=== PATIENT | female | born 1985 | race Caucasian/White ===

== ENCOUNTER 2023-02-27 19:53 | Emergency (ER) | payer BC, MEDICAID, SELFPAY ==
[2023-02-27 21:17] VITALS: BP 143/76; PULSE 73; RESP 16; TEMP 37.3; O2SAT 96; BMI 44.9
[2023-02-27 22:15] LABS: Lithium 1.31 mmol/L (0.60-1.20)
[2023-02-28 00:22] VITALS: BP 136/77; PULSE 77; RESP 18; TEMP 36.9; O2SAT 97
--- NOTE | 2023-02-28 00:23 | MHC.EDTECH ---
This tech placed patient in hospital attire,site monitor applied, Vitals taken. Call murphy within reach
--- NOTE | 2023-02-28 00:59 | MHC.EDTECH ---
Patient rang call murphy to use bathroom, patient ambulated with no assistance. Urine obtained and sent to lab.
[2023-02-28 01:13] LABS: Appearance Urine Cloudy; Color Urine Yellow; Glucose Urine UA Negative (Negative); Leukocyte Esterase Urine Moderate (2+) (Negative); Nitrite Urine Negative (Negative); PH 5.5 (5.0-9.0); UMIC TRIGGER UACC YES; Urine Blood Moderate (2+) (Negative); Urine Ketones Negative (Negative); Urine Protein Negative (Neg-Trace)
--- NOTE | 2023-02-28 01:15 | ED_ITS ---
HPI - General Adult General Chief complaint: General Medical Stated complaint: hi levels in labs Time Seen by Provider: 02/28/23 01:00 History of Present Illness HPI narrative: Patient is a 37-year-old female with a history of bipolar presented today because she had her lithium drug level drawn it was 1.4. Patient was worried. Came to the ED. there is mild nausea mild tremor that was noted. Patient denies any fever chills. No coughing or congestion no abdominal pain. Otherwise feels okay. She has been compliant with her medication. The dose of lithium has not changed. Related Data Allergies Allergy/AdvReac Type Severity Reaction Status Date / Time No Known Allergies Allergy Verified 02/27/23 21:22 Review of Systems Review of Systems: No fever no chills no chest pain or shortness breath no nausea no vomiting Yes all other systems are reviewed and are negative [facility] Past Medical History Attestation statement: The following information was validated with the patient. Social History Social History Alcohol intake: never Smoked in Last 30 Days: No Use of substances other than those prescribed or required for medical reasons: No Advance Directives: No Advance Directives Information Provided: No Patient : No Physical Exam ED Vital Signs: Vital Signs - 24 hr 02/27/23 21:17 02/28/23 00:22 02/28/23 01:27 Temperature 99.1 F 98.4 F 97.8 F Pulse Rate 73 77 70 Respiratory Rate 16 18 16 Blood Pressure 143/76 H 136/77 134/81 Pulse Oximetry 96 97 98 Oxygen Delivery Method Room Air Room Air Room Air BMI result Body Mass Index 44.9 Appearance: Alert. Oriented X3. No acute distress. Eyes: Pupils equal, round and reactive to light. ENT: Pharynx normal. Neck: Normal inspection. Neck supple. No lymph nodes noted. No crepitus CVS: Normal heart rate and rhythm. Pulses normal. Normal S1 and S2 Respiratory: No respiratory distress. Breath sounds normal. No Wheezing. No rales Abdomen: Soft and nontender. No rigidity. No distention. good BS x4 Skin: Skin warm and dry. Normal skin color. Normal skin turgor. Extremities: No lower extremity edema. Neurovascular intact to all extremities. No Lacerations. No Rash Neuro: Oriented X 3. No motor deficit. No sensory deficit. Moving all extermities. No slurred speech Medical Decision Making Medical Decision Making [facility] Narrative: Patient well-appearing. [place] level was 1.3 here. Electrolytes were normal. Normal kidney function. Patient in no distress. Will have patient follow-up on an outpatient basis. No evidence for severe overdose. No evidence for kidney failure. Patient is in stable condition. Differential Diagnosis Differential Diagnoses: The differential diagnosis associated with the presentation includes [place] overdose Lab Data [facility] Lab Attestation statement: I reviewed the patient's lab results. 02/28/23 01:24 02/28/23 01:24 Labs: Lab Results 02/27/23 02/28/23 02/28/23 Range/Units 21:41 01:04 01:04 WBC (4.8-10.8) X10*3/uL RBC (4.20-5.50) X10*6/uL Hgb (12.0-16.0) g/dl Hct (37.0-47.0) % MCV (80.0-98.0) fL MCH (27.0-33.0) pg MCHC (31.0-35.0) g/dl RDW (11.0-16.0) % Plt Count (160-400) X10*3/uL MPV (9.4-12.3) fL Immature Gran % (Auto) (0.0-0.4) % Neut % (Auto) (45-73) % Lymph % (Auto) (20-40) % [place] % (Auto) (2-11) % Eos % (Auto) (0-4) % Baso % (Auto) (0-2) % Lymph # (Auto) (1.2-4.9) X10*3/uL [place] # (Auto) (0.1-1.2) X10*3/uL Eos # (Auto) (0.0-0.4) X10*3/uL Baso # (Auto) (0.0-0.2) X10*3/uL Abs Immat Gran (auto) (0.00-0.03) X10*3/uL Absolute Neuts (auto) (2.0-8.3) x10*3/uL Absolute Nucleated RBC (0.0-0.012) X10*3/uL Nucleated RBC % (auto) (0.0-0.2) /100WBC Sodium (135-145) mmol/L Potassium (3.3-5.1) mmol/L Chloride (96-108) mmol/L Carbon Dioxide (22-29) mmol/L Anion Gap (12-20) BUN (9-16) mg/dL Creatinine (0.5-1.4) mg/dL Estim Creat Clear Calc Estimated GFR Random Glucose (60-115) mg/dL Calcium (8.4-10.2) mg/dL Urine Color Yellow Urine Appearance Cloudy Urine pH 5.5 (5.0-9.0) Ur Specific [place] 1.010 (1.005-1.025) Urine Protein Negative (Neg-Trace) mg/dL Urine Glucose (UA) Negative (Negative) mg/dL Urine Ketones Negative (Negative) mg/dL Urine Blood Moderate (2+) H (Negative) Urine Nitrite Negative (Negative) Ur Leukocyte Esterase Moderate (2+) H (Negative) Urine RBC 0-2 (0-2) /HPF Urine WBC 11-20 H (0-5) /HPF Ur Squamous Epith Cells 6-10 (0-2) /HPF Urine Bacteria Trace (None Seen) Hyaline Casts 0-2 (0-2) /LPF Urine Test NEGATIVE (NEGATIVE) [place] 1.31 H (0.60-1.20) mmol/L 02/28/23 02/28/23 Range/Units 01:24 01:24 WBC 12.2 H (4.8-10.8) X10*3/uL RBC 4.17 L (4.20-5.50) X10*6/uL Hgb 12.5 (12.0-16.0) g/dl Hct 37.7 (37.0-47.0) % MCV 90.4 (80.0-98.0) fL MCH 30.0 (27.0-33.0) pg MCHC 33.2 (31.0-35.0) g/dl RDW 12.6 (11.0-16.0) % Plt Count 324 (160-400) X10*3/uL MPV 8.9 L (9.4-12.3) fL Immature Gran % (Auto) 0.2 (0.0-0.4) % Neut % (Auto) 60.3 (45-73) % Lymph % (Auto) 27.9 (20-40) % [place] % (Auto) 8.3 (2-11) % Eos % (Auto) 3.0 (0-4) % Baso % (Auto) 0.3 (0-2) % Lymph # (Auto) 3.4 (1.2-4.9) X10*3/uL [place] # (Auto) 1.0 (0.1-1.2) X10*3/uL Eos # (Auto) 0.4 (0.0-0.4) X10*3/uL Baso # (Auto) 0.0 (0.0-0.2) X10*3/uL Abs Immat Gran (auto) 0.03 (0.00-0.03) X10*3/uL Absolute Neuts (auto) 7.4 (2.0-8.3) x10*3/uL Absolute Nucleated RBC 0.000 (0.0-0.012) X10*3/uL Nucleated RBC % (auto) 0.0 (0.0-0.2) /100WBC Sodium 139 (135-145) mmol/L Potassium 3.9 (3.3-5.1) mmol/L Chloride 105 (96-108) mmol/L Carbon Dioxide 24 (22-29) mmol/L Anion Gap 14 (12-20) BUN 9 (9-16) mg/dL Creatinine 0.89 (0.5-1.4) mg/dL Estim Creat Clear Calc 113.6 Estimated GFR > 60 Random Glucose 90 (60-115) mg/dL Calcium 10.2 (8.4-10.2) mg/dL Urine Color Urine Appearance Urine pH (5.0-9.0) Ur Specific [place] (1.005-1.025) Urine Protein (Neg-Trace) mg/dL Urine Glucose (UA) (Negative) mg/dL Urine Ketones (Negative) mg/dL Urine Blood (Negative) Urine Nitrite (Negative) Ur Leukocyte Esterase (Negative) Urine RBC (0-2) /HPF Urine WBC (0-5) /HPF Ur Squamous Epith Cells (0-2) /HPF Urine Bacteria (None Seen) Hyaline Casts (0-2) /LPF Urine Test (NEGATIVE) [place] (0.60-1.20) mmol/L Independent Historian From family Chronic Conditions Bipolar Discharge Plan Discharge Clinical Impression: Elevated lithium level Patient Disposition: Home, Self-Care Instructions: [place] Toxicity (ED) Referrals: Christine Chirinos, EN, GUILLOTINE OPERATOR, AUTOMATIC TYPEWRITER INSPECTOR-C [Primary Care Provider] - 03/01/23
[2023-02-28 01:16] LABS: UPreg QC Valid YES; Urine Pregnancy NEGATIVE (NEGATIVE)
--- NOTE | 2023-02-28 01:24 | MHC.EDTECH ---
Labs obtained and vitals were taken. Patient is resting comfortable at this time. Call murphy within reach
[2023-02-28 01:27] VITALS: BP 134/81; PULSE 70; RESP 16; TEMP 36.6; O2SAT 98
[2023-02-28 01:34] LABS: MANUAL DIFF FLAG NO
[2023-02-28 01:36] LABS: Basophils Percent Auto 0.3 % (0-2); Eosinophils Absolute Auto 0.4 X10*3/uL (0.0-0.4); Hematocrit 37.7 % (37.0-47.0); Hemoglobin 12.5 g/dl (12.0-16.0); Imm Gran Abs Auto 0.03 X10*3/uL (0.00-0.03); Imm Gran Pct Auto 0.2 % (0.0-0.4); Lymphocytes Absolute Auto 3.4 X10*3/uL (1.2-4.9); Lymphocytes Percent Auto 27.9 % (20-40); Mean Corpuscular HGB Conc 33.2 g/dl (31.0-35.0); Mean Corpuscular Volume 90.4 fL (80.0-98.0); Mean Platelet Volume 8.9 fL (9.4-12.3); Monocytes Percent Auto 8.3 % (2-11); Neutrophils Absolute Auto 7.4 x10*3/uL (2.0-8.3); Neutrophils Percent Auto 60.3 % (45-73); Platelet Count 324 X10*3/uL (160-400); Red Blood Count 4.17 X10*6/uL (4.20-5.50); Red Cell Distribution Width 12.6 % (11.0-16.0); White Blood Count 12.2 X10*3/uL (4.8-10.8)
[2023-02-28 01:41] LABS: Bacteria Urine Trace (None Seen); Hyaline Casts Urine 0-2 /LPF (0-2); RBC Urine 0-2 /HPF (0-2); UACC Culture Trigger YES
[2023-02-28 01:52] LABS: Anion Gap 14 (12-20); Blood Urea Nitrogen 9 mg/dL (9-16); Calcium 10.2 mg/dL (8.4-10.2); Carbon Dioxide 24 mmol/L (22-29); Chloride 105 mmol/L (96-108); Creatinine Clr Calc Pharmacy 113.6; Estimated Glomerular Filt Rate > 60; Glucose Random 90 mg/dL (60-115); Potassium 3.9 mmol/L (3.3-5.1); Sodium 139 mmol/L (135-145)
== END 2023-02-28 03:00 | disposition home or self-care (01) ==
PROVIDERS: Emergency Provider Emergency Medicine Emergency Medical Services; PCP Nurse Practitioner Family
DX: R79.89 Other specified abnormal findings of blood chemistry (principal); F31.9 Bipolar disorder, unspecified; R11.0 Nausea; Z79.899 Other long term (current) drug therapy
CPT/HCPCS: 36415; 80048; 80178; 81001; 81025; 85025; 87086; 99283; 99284

== ENCOUNTER 2025-06-04 00:03 | Emergency (ER) | payer OTHER, SELFPAY ==
--- OUTSIDE RECORDS SUMMARY | 2025-05-31 23:59 | XMS_ITS | Continuity of Care Document ---
Author Organization [facility] Kenny Patel Alistair lt Address [address] [place] [address]- Care Team Providers Care Juvenile Counselor Name Role Phone Sky PHILLIPS, Meenakshi Cazares Primary Care Physician [place] [facility] [place]/01/25 - 05/31/25 [facility] Kenny Patel Adult [address] [place] [address]- Encounter Type: Triage Allergies, Adverse Reactions, Alerts Substance Criticality Severity Reaction Reaction Severity Status valproic acid 1 Acti ve venlafaxine HTN - Hypertension Active Nickel Rash Active 1generic only, not Depakote, raised WBC's Immunizations Given and Recorded Vaccine Date Status Refusal Reason influenza virus vaccine, inactivated 07/01/24 Tim rded influenza virus vaccine, inactivated 07/08/23 Tim rded influenza virus vaccine, inactivated 07/21/22 Tim rded influenza virus vaccine, inactivated 06/12/21 Tim rded SARS-CoV-2(COVID-19)mRNA-LNP vac([id number]) 07/01/24 Recorded SARS-CoV-2(COVID-19)mRNA-LNP vac([id number]) 07/08/23 Recorded tetanus/diphtheria/pertussis, acel(Tdap) 11/07/22 Recorded [id number] 12y+ bivalent booster vax 07/13/22 Recorded SARS-CoV-2 (COVID-19) mRNA-1273 vaccine 07/18/21 R ecorded Medications Adderall 20 mg oral tablet 1 tablet = 20 mg, By Mouth, 2 times a day, # 60 tablet, 0 Refills, Maintenance, 05/01/25 12:27:00 PM EDT, Tablet, [id number], fill when due - F90.0 - for later April refill, 1 tablet By Mouth 2 times a day,x30 days, 165, cm, 03/03/25 8:12:00 EDT, Height Start Date: 05/01/25 Stop Date: 05/31/25 Status: Ordered Medication Dispense Status: Completed Quantity: 60.0 Unit: tablet Total Allowed Fills: 1 Fills Dispensed: 0 ALPRAZolam 1 mg oral tablet 1 tablet = 1 mg, By Mouth, 3 times a day, # 90 tablet, 5 Refills, Maintenance, 02/10/25 1:45:00 PM EDT, Tablet, [id number], Partial fill upon patient request if the prescription is for a schedule II opioid drug., 165, cm, 10/01/24 16:30:00 EST, Height Start Date: 02/10/25 Stop Date: 08/09/25 Status: Ordered Medication Dispense Status: Completed Quantity: 90.0 Unit: tablet Total Allowed Fills: 6 Fills Dispensed: 0 amLODIPine 5 mg oral tablet 5 mg, 1, tablet, By Mouth, Daily, # 90 tablet, Refills 1, Tot. Refills 1, Maintenance, 01/19/25 10:35:00 AM EDT, Route to Pharmacy Electronically, [id number], Partial fill upon patient requestif the prescription is for a schedule II opioid drug., 165, cm, 10/01/24 16:30:00 EST, Height Start Date: 01/19/25 Status: Ordered Medication Dispense Status: Completed Quantity: 90.0 Unit: tablet Total Allowed Fills: 2 Fills Dispensed: 0 cholestyramine 4 g/8.780 g oral powder for reconstitution See Instructions, MIX AND TAKE THE CONTENTS OF ONE PACKET DAILY, # 30 pack/packet, 6 Refills, Maintenance, 04/17/25 11:08:00 AM EDT, [id number], 165, cm, 03/03/25 8:12:00 EDT, Height Start Date: 04/17/25 Status: Ordered Medication Dispense Status: Completed Quantity: 30.0 Unit: pack/packet Total Allowed Fills: 1 Fills Dispensed: 0 lithium 150 mg oral capsule 1 capsule = 150 mg, By Mouth, Daily in AM, # 90 capsule, 1 Refills, Maintenance, 12/26/24 4:20:00 PM EDT, [id number], [employer] generic only, 165, cm, 10/01/24 16:30:00 EST, Height Start Date: 12/26/24 Stop Date: 06/24/25 Status: Ordered Medication Dispense Status: Completed Quantity: 90.0 Unit: capsule Total Allowed Fills: 2 Fills Dispensed: 0 lithium 300 mg oral tablet 2 tablet = 600 mg, By Mouth, Daily at bedtime, # 180 tablet, 1 Refills, Maintenance, 12/26/24 4:20:00PM EDT, Tablet, [facility]/pharm[id number], [facility] generic brand only, 165, cm, 10/01/24 16:30:00 EST, Height Start Date: 12/26/24 Stop Date: 06/24/25 Status: Ordered Medication Dispense Status: Completed Quantity: 180.0 Unit: tablet Total Allowed Fills: 2 Fills Dispensed: 0 metFORMIN 500 mg oral tablet 1 tablet, By Mouth, 2 times a day, # 180 tablet, 2 Refills, Maintenance, 03/20/25 8:45:00 AM EDT, [id number], 165, cm, 03/03/25 8:12:00 EDT, Height Start Date: 03/20/25 Status: Ordered Medication Dispense Status: Completed Quantity: 180.0 Unit: tablet Total Allowed Fills: 1 Fills Dispensed: 0 olanzapine 2.5 mg oral tablet 2.5 mg, 1, tablet, By Mouth, 2 times a day, take 1 tablet up to 2x/day for breakthrough anxiety (TDD 20mg), # 180 tablet, Refills 1, Tot. Refills 1, Maintenance, 12/26/24 4:21:00 PM EDT, Route to Pharmacy Electronically, [facility]pharm[facility][id number], Partial fill upon patient request if the prescription is for a schedule II opioid drug., 165, cm, 10/01/24 16:30:00 EST, Height Start Date: 12/26/24 Stop Date: 06/24/25 Status: Ordered Medication Dispense Status: Completed Quantity: 180.0 Unit: tablet Total Allowed Fills: 2 Fills Dispensed: 0 primidone 50 mg oral tablet 50 mg, 1, tablet, By Mouth, Daily at bedtime, Weeks 1-2: Take 0.5 tablet (25 mg) at night. Weeks 3 onward: If tolerating but not enough improvement of symptoms, then can increase to 1 tablet (50 mg) at night Can cause drowsiness, please exercise caution for falls. Do not drive if drowsy or dizzy., # 30 tablet, Refills 6, Tot. Refills 6, Maintenance, 03/03/25 9:05:00 AM EDT, Route to Pharmacy Electronically, [facility]/pharm[facility][id number], Partial fill upon patient request if the prescription is for a schedule II opioid drug., 165, cm, 03/03/25 8:12:00 EDT, Height Start Date: 03/03/25 Stop Date: 09/29/25 Status: Ordered Medication Dispense Status: Completed Quantity: 30.0 Unit: tablet Total Allowed Fills: 7 Fills Dispensed: 0 propranolol 80 mg oral tablet 2 tablet = 160 mg, By Mouth, 2 times a day, # 120 tablet, 3 Refills, Maintenance, 05/28/25 2:50:00 PMEDT, [facility]/pharm[facility][id number], Replaces the labetalol. I was looking for the 160 mg short release twice aday but I could not find that in my computer system, 165, cm, 05/28/25 14:27:00 EDT, Height Start Date: 05/28/25 Status: Ordered Medication Dispense Status: Completed Quantity: 120.0 Unit: tablet Total Allowed Fills: 4 Fills Dispensed: 0 Indications: Essential (primary) hypertension; Tremor, unspecified; spironolactone 100 mg oral tablet 100 mg, 1, tablet, By Mouth, 2 times a day, # 180 tablet, Refills 1, Tot. Refills 1, Maintenance, 04/15/25 10:50:00 AM EDT, Route to Pharmacy Electronically, [facility]/pharmacy #[id number], Partial fill upon patient request if the prescription is for a schedule II opioid drug., 165, cm, 03/03/25 8:12:00 EDT, Height Start Date: 04/15/25 Status: Ordered Medication Dispense Status: Completed Quantity: 180.0 Unit: tablet Total Allowed Fills: 2 Fills Dispensed: 0 ZyPREXA 10 mg oral tablet 10 mg, 1, tablet, By Mouth, Daily at bedtime, # 90 tablet, Refills 1, Tot. Refills 1, Maintenance, 05/01/25 12:27:00 PM EDT, Route to Pharmacy Electronically, [facility]/pharmacy [facility][id number], Partial fill upon patient request if the prescription is for a schedule II opioid drug., 165, cm, 03/03/25 8:12:00 EDT, Height Start Date: 05/01/25 Stop Date: 10/28/25 Status: Ordered Medication Dispense Status: Completed Quantity: 90.0 Unit: tablet Total Allowed Fills: 2 Fills Dispensed: 0 ZyPREXA 5 mg oral tablet 5 mg, 1, tablet, By Mouth, Daily, # 90 tablet, Refills 1, Tot. Refills 1, Maintenance, 05/01/25 12:26:00 PM EDT, Route to Pharmacy Electronically, [facility]/pharmacy #[id number], Partial fill upon patient request if the prescription is for a schedule II opioid drug., 165, cm, 03/03/25 8:12:00 EDT, Height Start Date: 05/01/25 Stop Date: 10/28/25 Status: Ordered Medication Dispense Status: Completed Quantity: 90.0 Unit: tablet Total Allowed Fills: 2 Fills Dispensed: 0 Problem List Condition Confirmation Course Effective Dates Status H ealth Status Informant Anxiety disorder Confirmed Active ADD (attention deficit disorder) Confirmed Active Diarrhea 1 Confirmed Active Hirsutism Confirmed Active History of pituitary adenoma 2 Confirmed Active S/P selective transsphenoidal pituitary adenomectomy Confirmed Active Hypertension 3 Confirmed 2014 Active Insomnia Confirmed Active Bipolar I disorder, most recent episode mixed 4, 5, 6 Confirmed Active EMILIANO (obstructive sleep apnea) 7 Confirmed 12/16/24 Active PTSD (post-traumatic stress disorder) 8, 9 Confirmed Active Severe obesity (BMI 35.0-39.9) with comorbidity 10, 11 Confirmed Active Snoring Confirmed Active 1Chronic after cholecystectomy. Controlled with cholestyramine 2hx of surgery. saw dr delacruz 08/17 - The small fullness in the left pituitary appears stable datingback a few years. Roshni says that endocrinology said her hormone function is fine and preoperatively when she had surgery in [place] they stated that this was a nonfunctioning adenoma. There is plenty of room between this growth and the chiasm and we have got plenty of time to keep an eye on it at this point I do not think there is a role for radiosurgery. Things seem stable. Will repeat her MRI of the pituitary with and without gadolinium in 1 year. 3Started on labetolol b/c of other meds interacting wit the lithium 4hx of 8 hospitalization. depression, self harm, manic 5Followed [employer] DRESS[employer] Margy Williamson at [facility] 6managed on lithium 7AutoCPAP 5-20 cm H2O with compliance data followed 8in counsleing 9childhood trauma 10She was put on metformin twice a day to help combat weight gain when she was put on the Zyprexa 11Highest weight was 390 Social History Social History Type Response Sexual Sexually involved in last 6 months: No. Preferred pronoun: She/her. Ever been sexually involved? No. Smoking Status Never (less than 100 in lifetime) entered on: 01/22/24 Sex Sex Representation Female (finding) Patient Care team information Care Team Personnel Name: Paula Gray MA Position: [facility] Office Staff Member Role: Primary Care Nurse Name: Meenakshi Swanson MD Position: [facility] Physician - Primary Care Member Role: PCP Address: [address] [place] [address] [place], [place] [id number] Telecom: Care Team Related Persons Name: GLORIA GUAMAN Insurance Providers Guarantor name: [facility] [employer] Plan Information #: 1 Payer: [employer] Payer Identifier: NA Member Number: [id number] Group Number: [id number] Subscriber Identifier: NA Relationship to Subscriber: self Coverage Type: Medicaid (Managed Care) Coverage Verification Date: NA Telecom: NA Address:
--- NOTE | 2025-06-04 | ECG_ITS ---
Test Reason : MED ERROR Blood Pressure : */* mmHG Vent. Rate : 60 BPM Atrial Rate : 60 BPM P-R Int : 172 ms QRS Dur : 112 ms QT Int : 448 ms P-R-T Axes : 45 -4 -3 degrees QTcB Int : 448 ms Normal sinus rhythm Possible Inferior infarct Minimal voltage criteria for LVH, may be normal variant ( [place] product ) Cannot rule out Anterior infarct (cited on or before 04-Jun-2025) Abnormal ECG When compared with ECG of 04-Jun-2025 00:26, Nonspecific T wave abnormality, worse in Inferior leads Referred By: Zack Zhu Electronically Signed By: SADIE JETT MD
--- NOTE | 2025-06-04 | ECG_ITS ---
Test Reason : BETA BENITO OD Blood Pressure : */* mmHG Vent. Rate : 69 BPM Atrial Rate : 69 BPM P-R Int : 182 ms QRS Dur : 112 ms QT Int : 430 ms P-R-T Axes : 46 -5 73 degrees QTcB Int : 460 ms Normal sinus rhythm Minimal voltage criteria for LVH, may be normal variant ( [place] product ) Inferior infarct , age undetermined Cannot rule out Anterior infarct , age undetermined Abnormal ECG No previous ECGs available Referred By: Carli Mario Electronically Signed By: SADIE JETT MD
[2025-06-04 00:04] VITALS: BP 138/79; PULSE 71; RESP 20; TEMP 36.2; O2SAT 99; BMI 38.9
--- NOTE | 2025-06-04 00:14 | ED_ITS ---
HPI - General Adult General Chief complaint: General Medical Stated complaint: 2 Extra beta blockers taken Time Seen by Provider: 06/04/25 00:13 Source: patient, RN notes reviewed and old records reviewed Mode of arrival: ambulatory Limitations: no limitations History of Present Illness ED Provider: Angelina BRAY narrative: 39-year-old female presents for evaluation of an accidental beta-gabrielle overdose. Has a history of diabetes, hypertension, bipolar disorder. She developed a resting tremor and therefore her doctor was changing her labetalol 500 mg b.i.d. to propranolol 160 mg b.i.d.. The patient accidentally took both of these medications at 10:30 p.m. tonight She also took her nighttime dose of Zyprexa She called poison control due to the double dose and was referred to the ER for evaluation The patient complains of some fatigue, nausea and lightheadedness Denies chest pain or shortness of breath Related Data Allergies Allergy/AdvReac Type Severity Reaction Status Date / Time No Known Allergies Allergy Verified 06/04/25 00:08 Review of Systems 2 Constitutional: Constitutional: Denies body ache(s), Denies chills, Reports fatigue and Denies fever(s) Eyes: Eyes: Denies blurry vision ENT: Denies vertigo Cardiovascular: Cardiovascular: Reports lightheadedness and Denies dyspnea on exertion Respiratory: Respiratory: Denies cough and Denies dyspnea on exertion Gastrointestinal: Gastrointestinal: Denies abdominal pain, Denies nausea and Denies vomiting Musculoskeletal: Musculoskeletal: Denies back pain Integumentary/Breasts: Skin/Breast: Denies rash Neurologic: Denies vertigo Endocrine: Endocrine: Reports fatigue [facility] Social History Social History Alcohol intake: never Smoked in Last 30 Days: No Use of substances other than those prescribed or required for medical reasons: No Advance Directives: No Advance Directives Information Provided: Yes Patient : No Physical Exam ED Vital Signs: Vital Signs - 24 hr 06/04/25 00:04 06/04/25 01:06 06/04/25 01:52 Temperature 97.2 F 98.2 F Pulse Rate 71 66 64 Respiratory Rate 20 20 14 Blood Pressure 138/79 114/66 110/65 Pulse Oximetry 99 95 98 Oxygen Delivery Method Room Air Room Air Room Air 06/04/25 02:25 Temperature 98.0 F Pulse Rate 77 Respiratory Rate 20 Blood Pressure 109/56 L Pulse Oximetry 95 Oxygen Delivery Method Room Air BMI result Body Mass Index 38.9 Const General: healthy appearing, comfortable, no acute distress, alert and awake Nutritional Appearance: well nourished Orientation/consciousness: patient oriented x3 HENMT Head: Yes normocephalic and Yes atraumatic Throat: Yes posterior oropharynx normal Eyes Eyelids: Yes eyelids normal Conjunctivae: conjunctivae normal Sclerae: sclerae normal Corneas: corneas normal Pupils: Equal, round and reactive pupils present EOM: EOMs intact bilaterally Neck Neck: Yes full ROM Resp Effort & Inspection: normal respiratory effort, able to speak in complete sentences, no audible wheezes and not labored Auscultation: clear to auscultation bilaterally Cardio Rate: regular rate Rhythm: regular rhythm GI Inspection: No distended Palpation (GI): Soft to palpation, not firm, nontender, no guarding and not rigid Skin General skin exam: elasticity normal Neuro General: patient oriented x3 Cranial nerves: Yes Equal, round and reactive pupils present and Yes Bilaterally intact EOM present Cognition (Neuro): normal cognition Extrem Other: Moving all extremities well without any obvious deformities Course Reevaluation(s) Reevaluation #1: I Carli Mario PA-C have accepted care of the patient and signed out pending reassessment and final disposition. The patient has remained stable, her pressures and heart rate are stable, she is safe to discharge at this point per poison control instructions Time: 04:24 Medical Decision Making Medical Decision Making MDM Narrative: Was past medical history as above presents for evaluation of an accidental beta- gabrielle overdose. She took 500 mg of labetalol as well as 160 mg propranolol. She was only supposed to take her propranolol. Complains of lightheadedness. Blood pressure on arrival is 138/79 with a pulse of 71. He had a fall she will be maintained on the hospital monitor, EKG was ordered. EKG shows a sinus rhythm with a rate of 69 beats minute. QTC is 460. No ST segment elevation NM. discussed with poison control. Plan for a 6 hour observation from the point of ingestion with basic labs and an EKG. If the patient's remains stable she can be discharged. 6 hours after time of ingestion would be 4:30 a.m. the patient is quite adamant this is accidental overdose and she is not depressed or self- harming Differential Diagnosis Differential Diagnoses: The differential diagnosis associated with the presentation includes Lightheadedness Accidental beta-gabrielle overdose Bradycardia Hypotension Admission/Observation Consideration of admission/observation: Escalation of care including admission/observation considered Lab Data MDM Lab Attestation statement: I reviewed the patient's lab results. Mild leukocytosis to 12.8, there are no infectious symptoms or signs, she is afebrile. Uncertain etiology. No significant anemia. Normal platelet count. No significant electrolyte abnormalities warranting intervention. 06/04/25 00:42 06/04/25 00:42 Labs: Lab Results 06/04/25 Range/Units 00:42 WBC 12.8 H (4.8-10.8) X10*3/uL RBC 4.06 L (4.20-5.50) X10*6/uL Hgb 12.6 (12.0-16.0) g/dl Hct 35.7 L (37.0-47.0) % MCV 87.9 (80.0-98.0) fL MCH 31.0 (27.0-33.0) pg MCHC 35.3 H (31.0-35.0) g/dl RDW 12.1 (11.0-16.0) % Plt Count 310 (160-400) X10*3/uL MPV 8.8 L (9.4-12.3) fL Immature Gran % (Auto) 0.3 (0.0-0.4) % Neut % (Auto) 57.9 (45-73) % Lymph % (Auto) 28.8 (20-40) % Maries % (Auto) 9.9 (2-11) % Eos % (Auto) 2.7 (0-4) % Baso % (Auto) 0.4 (0-2) % Lymph # (Auto) 3.7 (1.2-4.9) X10*3/uL Maries # (Auto) 1.3 H (0.1-1.2) X10*3/uL Eos # (Auto) 0.3 (0.0-0.4) X10*3/uL Baso # (Auto) 0.1 (0.0-0.2) X10*3/uL Abs Immat Gran (auto) 0.04 H (0.00-0.03) X10*3/uL Absolute Neuts (auto) 7.4 (2.0-8.3) x10*3/uL Absolute Nucleated RBC 0.000 (0.0-0.012) X10*3/uL Nucleated RBC % (auto) 0.0 (0.0-0.2) /100WBC Sodium 138 (135-145) mmol/L Potassium 4.3 (3.3-5.1) mmol/L Chloride 105 (96-108) mmol/L Carbon Dioxide 23 (22-29) mmol/L Anion Gap 14 (12-20) BUN 18 H (9-16) mg/dL Creatinine 1.09 (0.5-1.4) mg/dL Estim Creat Clear Calc 83.8 Estimated GFR 56 Random Glucose 101 (60-115) mg/dL Calcium 9.5 D (8.4-10.2) mg/dL Magnesium 1.8 (1.6-2.6) mg/dL Total Bilirubin 0.4 (0.0-1.0) mg/dL AST 17 (5-31) U/L ALT 8 (0-31) U/L Alkaline Phosphatase 52 (39-117) U/L Total Protein 7.3 (6.5-8.0) g/dL Albumin 4.8 (3.5-5.0) g/dL Discharge Plan Discharge Clinical Impression: Accidental overdose Patient Disposition: Home, Self-Care Instructions: Hypertension (ED) Additional Instructions: Your workup in the ER today was reassuring. In his very important that you are careful administering your medications to prevent accidental overdoses. Print Language: Maltese
--- NOTE | 2025-06-04 00:43 | PC.NURSE ---
pt a&ox4, respirations even and unlabored. pt reports at 1030 pm she took 160mg of propanolol and 500mg of labatolol at the same time. pt reports this is accidental as she is switching her medications. pt vss. ekg obtained. this rn called poison control, suggestions for basic labs and to watch pt for 6 hours. PA Martin aware at this time. 20g placed in right forearm and labs obtained. nsr on tele 70-77bpm
[2025-06-04 00:46] LABS: MANUAL DIFF FLAG NO
[2025-06-04 00:47] LABS: Hematocrit 35.7 % (37.0-47.0); Hemoglobin 12.6 g/dl (12.0-16.0); Imm Gran Abs Auto 0.04 X10*3/uL (0.00-0.03); Imm Gran Pct Auto 0.3 % (0.0-0.4); Lymphocytes Absolute Auto 3.7 X10*3/uL (1.2-4.9); Mean Corpuscular HGB Conc 35.3 g/dl (31.0-35.0); Mean Corpuscular Hemoglobin 31.0 pg (27.0-33.0); Mean Corpuscular Volume 87.9 fL (80.0-98.0); NRBC Abs Auto 0.000 X10*3/uL (0.0-0.012); NRBC Pct Auto 0.0 /100WBC (0.0-0.2); Platelet Count 310 X10*3/uL (160-400); Red Blood Count 4.06 X10*6/uL (4.20-5.50); White Blood Count 12.8 X10*3/uL (4.8-10.8)
--- OUTSIDE RECORDS SUMMARY | 2025-06-04 00:48 | XMS_ITS | Patient Health Record ---
Author Organization Dipesh Jordan [facility] Address [id number] [place], [place] [id number] Care Team Providers Care Turning Lathe Tender Name Role Phone Luis Fernando Tang Unavailable [phone] Allergies No Known Allergies Reason For Referral No Information Medications Medication SIG (Take, Route, Frequency, Duration) Notes Start Date End Date Status ZyPREXA 2.5 MG 1 tablet Orally at bedtime with 10 mg tablet; Duration: 90 days pt's gabapentin is being reduced to 300 mg tid. please stop the 400 mg dose. Active Ponce Carbonate 150 MG 1 capsule Orally Once a day; Duration: 90 days Active ZyPREXA 7.5 MG 1 tablet Orally Once a day; Duration: 90 days pt is now taking 7.5 of zyprexa instead of hte 5 mg. 04/09/2024 Active Xanax 1 MG 1 tablet Orally three times per day; Duration: 30 days 04/09/2024 Active Ponce Carbonate 150 MG 1 capsule Orally Once a day; Duration: 30 day(s) 06/16/2021 Active Ponce Carbonate 300 MG as directed Orally 2 tablets at bedtime; Duration: 90 days Active ZyPREXA 10 MG 1 tablet Orally at bedtime; Duration: 90 days Active LaMICtal 100 MG 1 tablets Orally every day with the 200 mg tablet; Duration: 90 days Active LaMICtal 200 MG 1 tablet Orally Once a day; Duration: 90 days Active Xanax 1 MG 1 tablet Orally Twice a day; Duration: 30 days 04/22/2023 Active Immunizations Vaccine Route Administration Date Status Comme nts COVID-19, mRNA (Moderna) 100 mcg (Ages 12+) IM Intramuscular 11/27/2020 Administered COVID-19, mRNA (Moderna) 100 mcg (Ages 12+) IM Intramuscular 12/28/2020 Administered Social History Tobacco Use: Social History Observation Description Date Details (start date - stop date) Never Smoker NA - NA Sex Assigned At : Social History Observation Description Sex Assigned At Female Smoking Question Answer Notes Are you a: never smoker PRAPARE Question Answer Notes *What is your current housing situation? I have housing -- Asiya baeza *Are you worried about naty wiley your housing? No What is the highest level of school that you have finished? More than high school-[employer] What is your current work situation? Oth erwise unemployed but not seeking work (ex. 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 No How often do you see or talk to people that you care about and feel close to? (For example: talking to friends on the phone, visiting friends or family, going to protestant or club meetings) More than 5 times a week-Mas de 5 veces por semana How stressed are you? Stress is when someone feels tense, nervous, anxious, or can't sleep at night because their mind is troubled Somewhat-Un poquito Do you feel physically and e motionally safe where you currently live? Yes In the past year, have you b een afraid of your partner or ex-partner? No PRAPARE Score: 2 Enabling Services Provided? Yes Section Notes: pt denies etoh, tob or drugs . pt denies etoh, tob or drugs . No smoking, alcohol 1-2 a mo nth, no drugs Problems Problem Type SNOMED Code ICD Code Onset Dates Problem Status W/U Status Risk Notes Problem Bipolar disorder (19642899) BIPOLAR DISORDER NEC (296.89) Active confirmed Problem Bipolar disorder (33282586) Bipolar disorder with psychotic features (F31.9) Active confirmed Problem Severe depressed bipolar I disorder without psychotic features (51879429) Bipolar I disorder with depression, severe (F31.4) Active confirmed Problem Bipolar affective disorder, currently depressed, mild (874137613) Bipolar 1 disorder, depressed, mild (F31.31) Active confirmed Problem Posttraumatic stress disorder (62561983) PTSD (post-traumat ic stress disorder) (F43.10) Active confirmed Problem Bipolar 1 disorder (550338643) Bipolar 1 disorder (F31.9) Active confirmed Plan Of Treatment Pending Test Test Name Order Date Ponce (Eskalith(R)), Serum [613] 01/19 Ponce (Eskalith(R)), Serum [613] 02/01 Ponce (Eskalith(R)), Serum [613] 11/14 Future Test Test Name Order Date Ponce (Eskalith(R)), Serum [613] 04/24 Ponce (Eskalith(R)), Serum [613] 07/13 Ponce (Eskalith(R)), Serum [613] 02/08 Ponce (Eskalith(R)), Serum [613] 03/01 Ponce (Eskalith(R)), Serum [613] 04/12 Ponce (Eskalith(R)), Serum [613] 06/13 Ponce (Eskalith(R)), Serum [613] 11/01 Ponce (Eskalith(R)), Serum [613] 11/28 Ponce (Eskalith(R)), Serum [613] 01/08 Insurance Providers Payer Name Payer Address Payer Phone Subscriber Number Group Number Insured Name Patient Relationship to Insured Coverage Start Date Coverage End Date Todd Adler [facility] ([place] [address] [place] [address] [id number] Roshni Snow Self - patient is the insured Medical (General) History Medical History History ICD Code Patient learning assessment done 04/08/12 SW bipolar do follows with dr. bharti fofana, psych, on [address], follows labs Li levels tdap 09/02 Surgical History Surgery Date(Month/Year) PSY admissions, last 2007
--- OUTSIDE RECORDS SUMMARY | 2025-06-04 00:48 | XMS_ITS | Patient Health Record ---
Author Organization [facility] e Address [address] [place] [address] Care Team Providers Care Marine Fisheries Technician Name Role Phone Kristopher Sheehanga Primary Care Provider [phone] Reason For Referral No Information Medications Medication SIG (Take, Route, Frequency, Duration) Notes Start Date End Date Status LaMICtal 200 MG Tablet 1 tablet Orally O nce a day; Duration: 30 days Active ZyPREXA 7.5 MG Tablet 1 tablet Orally On ce a day; Duration: 30 day(s) 09/09/2020 Active Saphris 10 MG Tablet Sublingual 1 tablet under the tongue and allow to dissolve Sublingual Twice a day; Duration: 90 days Active ZyPREXA 7.5 MG Tablet 1 tablet Orally On ce a day; Duration: 90 days Active Ativan 1 MG Tablet 1 tablet at bedtime as needed Orally bid; Duration: 30 days Active Bruce Carbonate 300 MG Tablet 2 tablet Orally bid; Duration: 90 days Active Trileptal 150 MG Tablet 1 tab Orally qam with the 300 mg tablet; Duration: 30 day(s) 11/26/2019 Active Ativan 1 MG Tablet 1 tablet at bedtime as needed Orally twice a day; Duration: 30 days Code A. Active Immunizations Vaccine Route Administration Date Status Comme nts A Influenza Quadrivalent IM Intramuscular 07/16/2018 Administered Tolerated injection well Moderna First Dose (Ages 12 and Up) Unknown 11/27/2020 Administered Moderna Second Dose (Ages 12 and Up) Unknown 12/28/2020 Administered Social History Social History Psychosocial*: Social Info Question Answer Notes : Did you or family member serve in the [facility]? No Language Primary language: [employer] Used? No Domestic Violence: Have you ever been i n a relationship in which you have been physically, emotionally, or sexually hurt or felt threatened? No Have you ever felt unsafe in your home? No Do you feel unsafe or threatened in your current relationship? No Have you ever been or are yo u currently concerned about harming your partner or someone close to you? No Legal: Have you had any encounters with the lucas ce? No Legal hx obtained? Yes Do you have Pending Charges? No Do you have a hx of arrests? No Do you have a hx of incarcerations? No Do you have an order of protection? No Are you currently on probation/parole? No Problems Problem Type SNOMED Code ICD Code Onset Dates Problem Status W/U Status Risk Notes Problem Borderline personality disorder (75951245) Borderline personality disorder ~ 0.309 0.396 (F60.3) Active confirmed Problem Posttraumatic stress disorder (64928114) PTSD (post-traumatic stress disorder) (F43.10) Active confirmed Problem Bipolar disorder (55552728) Bipolar I disorder with mixed features ~ 0.309 0.351 (F31.9) Active confirmed Plan Of Treatment Pending Test Test Name Order Date Bruce (Eskalith), Serum 11/17/2019 Bruce (Eskalith), Serum 02/19/2019 Bruce (Eskalith), Serum 03/31/2019 Oxcarbazepine 11/17/2019 Oxcarbazepine 02/19/2019 OXCARBAZEPINE METABOLITE 03/04/2020 OXCARBAZEPINE METABOLITE 09/29/2019 OXCARBAZEPINE METABOLITE 04/03/2019 OXCARBAZEPINE METABOLITE 04/14/2019 OXCARBAZEPINE METABOLITE 05/22/2019 LITHIUM,SERUM (80377N) 05/22/2019 LITHIUM,SERUM (97360Q) 09/29/2019 LITHIUM,SERUM (29234G) 04/14/2019 LITHIUM,SERUM (92575V) 03/04/2020 LITHIUM,SERUM (81812G) 04/24/2019 LITHIUM,SERUM (68760V) 04/03/2019 LITHIUM,SERUM (95322V) 12/26/2018 OXCARBAZEPINE METABOLITE 07/16/2018 OXCARBAZEPINE METABOLITE 01/17/2018 OXCARBAZEPINE METABOLITE 02/21/2018 OXCARBAZEPINE METABOLITE 02/27/2018 OXCARBAZEPINE METABOLITE 12/24/2017 LITHIUM 12/24/2017 LITHIUM 01/17/2018 LITHIUM 02/27/2018 LITHIUM 02/28/2018 LITHIUM 07/16/2018 LITHIUM 02/21/2018 Insurance Providers Payer Name Payer Address Payer Phone Subscriber Number Group Number Insured Name Patient Relationship to Insured Coverage Start Date Coverage End Date Todd MARTINEZ [facility] [address] [facility] [place] [address] [phone] [id number] RASHEED SIMONS Self - patient is the insured [place] [address] [place] [address] [phone] [id number] RASHEED SIMONS Self - patient is the insured Medical (General) History Medical History History ICD Code obesity disc disease L4-L5 Surgical History Surgery Date(Month/Year) gallbladder surgery 12/09 Hospitalization History Reason Date(Month/Year) 7 psychiatric hospitalizations
[2025-06-04 01:02] LABS: Alanine Aminotransferase 8 U/L (0-31); Albumin Level 4.8 g/dL (3.5-5.0); Alkaline Phosphatase 52 U/L (39-117); Anion Gap 14 (12-20); Aspartate Amino Transferase 17 U/L (5-31); Blood Urea Nitrogen 18 mg/dL (9-16); Calcium 9.5 mg/dL (8.4-10.2); Carbon Dioxide 23 mmol/L (22-29); Chloride 105 mmol/L (96-108); Creatinine Clr Calc Pharmacy 83.8; Estimated Glomerular Filt Rate 56; Magnesium 1.8 mg/dL (1.6-2.6); Potassium 4.3 mmol/L (3.3-5.1); Sodium 138 mmol/L (135-145); Total Protein 7.3 g/dL (6.5-8.0)
[2025-06-04 01:06] VITALS: BP 114/66; PULSE 66; RESP 20; O2SAT 95
[2025-06-04 01:52] VITALS: BP 110/65; PULSE 64; RESP 14; TEMP 36.8; O2SAT 98
[2025-06-04 02:25] VITALS: BP 109/56; PULSE 77; RESP 20; TEMP 36.7; O2SAT 95
--- NOTE | 2025-06-04 03:06 | PC.NURSE ---
poison control on line with rn at this time, per poison control repeat ekg at this time. MD Zhu aware
[2025-06-04 04:24] VITALS: BP 107/63; PULSE 63; RESP 15; TEMP 36.6; O2SAT 97
--- NOTE | 2025-06-04 04:24 | PC.NURSE ---
pt vss, offers no complaints at this time, pt states her dizziness has now subsided. ARABELLA estevez.
[2025-06-04 04:47] VITALS: BP 107/63; PULSE 63; RESP 15; TEMP 36.6; O2SAT 97
== END 2025-06-04 04:48 | disposition home or self-care (01) ==
PROVIDERS: Physician Assistant; Emergency Provider Emergency Medicine; PCP Internal Medicine
DX: T44.7X1A Poisoning by beta-adrenoreceptor antagonists, accidental (unintentional), initial encounter (principal); I10 Essential (primary) hypertension; E11.9 Type 2 diabetes mellitus without complications; R53.83 Other fatigue; Z79.899 Other long term (current) drug therapy
CPT/HCPCS: 36415; 80053; 83735; 85025; 93005; 99283; 99285

== ENCOUNTER → 2025-06-04 00:26 | Outpatient (BNV) | payer OTHER, SELFPAY | PROVIDERS: Emergency Provider Emergency Medicine; PCP Internal Medicine; Visit Provider Internal Medicine Cardiovascular Disease | DX: R94.31 Abnormal electrocardiogram [ECG] [EKG] (principal); T46.5X1A Poisoning by other antihypertensive drugs, accidental (unintentional), initial encounter | CPT/HCPCS: 93010 ==